=== PATIENT | female | born 1990 | race Caucasian/White ===

== ENCOUNTER 2016-11-15 10:54 | Emergency (ER) | payer SELFPAY ==
[~2016-11-15] VITALS: Ht 172.7 cm; Wt 123.3 kg
[2016-11-15 11:03] VITALS: BP 117/76; PULSE 104; RESP 16; TEMP 99.3; O2SAT 94
--- NOTE | 2016-11-15 11:25 | PD ---
HPI Chief Complaint: Skin Problem Time Seen by Provider: 11:23 Travel History International Travel<30 days: No Contact w/Intl Traveler<30days: No Traveled to known affect area: No History of Present Illness HPI Patient comes in complaining of abscess on her left upper buttocks that began approximately 3 days ago is very painful. Pain is worse with sitting. Patient denies anything making it better. Patient reports she had similar approximately 4 years ago that was I&D, but patient has not followed up. Denies any fevers with this, loss change in bowel or bladder, or .. Patient reports on medication that she is on Suboxone. PFSH Past Medical History Hx Anticoagulant Therapy: No Cardiovascular Problems: No Chemotherapy: No Cerebrovascular Accident: No Diabetes: No Diminished Hearing: No Respiratory: No ?: Unknown LMP: 4.5 weeks ago : 0 Past Surgical History Hysterectomy: No Social History Alcohol Use: Yes (rare) Tobacco Use: Yes Substance Use: Yes (dilaudid,roxys,xanax) Allergies-Medications (Allergen,Severity, Reaction): Coded Allergies: No Known Allergies (Unverified , 11/15/16) Reported Meds & Prescriptions Reported Meds & Active Scripts Active Naprosyn (Naproxen) 500 Mg Tab 500 Mg PO Q12HR PRN Bactrim DS (Sulfamethoxazole-Trimethoprim) 800-160 Mg Tab 1 Tab PO BID Reported [suboxone] Review of Systems Except as stated in HPI: all other systems reviewed are Neg Physical Exam Narrative GENERAL: Well-developed, overly nourished, in no acute distress, and non-ill appearing. SKIN: Warm and dry. Pilonidal cyst noted the cleft buttocks on the left than right with tenderness to palpation. There is no drainage. The exam was performed in the presence of staff reporterJESSIE Bolton at all times. HEAD: Atraumatic. Normocephalic. EYES: Pupils equal and round. EOMI. No scleral icterus. No injection or drainage. ENT: No nasal bleeding or discharge. Mucous membranes pink and moist. NECK: Trachea midline. Supple. No nuclear rigidity. RESPIRATORY: No accessory muscle use. No respiratory distress. MUSCULOSKELETAL: No obvious deformities. No clubbing. No cyanosis. No edema. Full range of motion. NEUROLOGICAL: Awake and alert. No obvious cranial nerve deficits. Motor grossly within normal limits. Normal speech. PSYCHIATRIC: Appropriate mood and affect; insight and judgment normal. Data Data Last Documented VS Vital Signs Date Time Temp Pulse Resp B/P Pulse Ox O2 Delivery O2 Flow Rate FiO2 11/15/16 11:03 99.3 104 16 117/76 94 Orders Lidocai-Epi 1%-1:100,000 Inj (Xylocaine- (11/15/16 11:30) Wound Culture And Gram Stain (11/15/16 12:11) MDM Medical Decision Making Medical Screen Exam Complete: Yes Emergency Medical Condition: Yes Differential Diagnosis Abscess, cellulitis, pilonidal, other Narrative Course The patient has no evidence of significant cellulitis. There is no evidence of necrotizing fasciitis/ Forneys at this time. The patient will be discharged on antibiotics. The patient was given signs and symptoms warnings for worsening infection, such as spreading of redness, increasing pain, and/or swelling, associated heat, or fever or feels worse, and instructed to return immediately if these signs or symptoms worsen. The patient is to return in 2 days for recheck. Sooner if worsens or as needed. The patient agrees with plan. Patient in no obvious distress upon re-evaluation. Patient was asked if they wanted to speak to my attending, which the patient did not wish to do at this time. Any questions/concerns in reference to patient diagnosis/condition discussed and clarified prior to patient's discharge. Reinforced sheer importance of close follow up with patient's primary physician or primary care clinic. Instructed patient to return to ED immediately, if symptoms return/ worsen. Pt showed understanding of above instructions. Further instructions and recommendations were detailed in discharge paperwork. Pt ambulated without difficulty out of ED at discharge. Procedures Procedure Narrative INCISION AND DRAINAGE OF ABSCESS: Verbal consent was obtained. The area was prepped. A subcutaneous wheal of 1% Xylocaine with epi with a total number 3 mL was used to anesthetize the area. The area was properly anesthetized. A number 11 scalpel was used to make a 1-cm incision across the area of the abscess. The abscess was drained and irrigated with normal saline. Quarter inch iodoform packing was placed in the wound. Sterile dressing applied by nurse. Patient tolerated procedure well. Patient advised to return here in 2 days to have packing removed and wound rechecked. Patient verbalized understanding. Procedure was performed in presence of staff reporterJESSIE Bolton at all times. Diagnosis Primary Impression: Pilonidal cyst with abscess Referrals: Edgar Gamino MD Patient Instructions: General Instructions, Pilonidal Cyst (ED), Sitz Bath (GEN ) Additional Instructions: Follow-up with general surgery for definitive treatment. Return here in 2 days for recheck. Apply warm compresses or do sitz baths 2-3 times daily to facilitate drainage. Take all medication as prescribed. Use a hemorrhoid pillow for comfort when sitting. Return to the emergency department if symptoms get worse. Med/Other Pt SpecificInfo: Prescription(s) given Scripts Naproxen (Naprosyn)500 Mg Sac639 Mg PO Q12HR PRN (PAIN SCALE 1 TO 10) #14 TAB Ref 0 Prov:Kelsi Syed MD 11/15/16 Sulfamethoxazole-Trimethoprim (Bactrim DS)800-160 Mg Tab1 Tab PO BID #20 TAB Ref 0 Prov:Kelsi Syed MD 11/15/16 Disposition: 01 DISCHARGE HOME Condition: Stable Chris Warren Nov 15, 2016 11:25
[2016-11-15] MEDS ORDERED: suboxone (11:27)
[2016-11-15] MEDS ORDERED: LIDOCAINE 1%/EPINEPHrine 1:100,000 SOLN 20 ML VIAL INFIL ONE (11:30)
[2016-11-15] MEDS ORDERED: NAPR500 PO (12:15)
[2016-11-15] MEDS ORDERED: BACT800T5 PO (12:15)
== END 2016-11-15 12:59 | disposition home or self-care (01) ==
LOC: PHEFT 10:54
DX: L05.01 Pilonidal cyst with abscess (principal); B95.4 Other streptococcus as the cause of diseases classified elsewhere
CPT/HCPCS: 10080; 87070

== ENCOUNTER 2016-11-26 11:12 | Emergency (ER) | payer SELFPAY ==
[~2016-11-26] VITALS: Ht 172.7 cm; Wt 116.0 kg
[~2016-11-26 11:12] MED LIST: BACT800T5 PO; NAPR500 PO; suboxone
[2016-11-26 11:35] VITALS: BP 109/73; PULSE 99; RESP 15; TEMP 97.9; O2SAT 95
--- NOTE | 2016-11-26 12:05 | PD ---
HPI Chief Complaint: Wound/Suture/Staple Re-Check Time Seen by Provider: 12:01 Travel History International Travel<30 days: No Contact w/Intl Traveler<30days: No Traveled to known affect area: No History of Present Illness HPI 26-year-old female coming in status post pilonidal cyst I&D on 2016. Patient is here for recheck and packing removal. Patient has no complaints. She has no known drug allergies. PFSH Past Medical History Medical History: Denies Significant Hx Hx Anticoagulant Therapy: No Cardiovascular Problems: No Chemotherapy: No Cerebrovascular Accident: No Diabetes: No Diminished Hearing: No Respiratory: No Immunizations Current: Yes Tetanus Vaccination: < 5 Years Influenza Vaccination: No ?: Not LMP: 2 WEEKS AGO : 0 Past Surgical History Surgical History: No Previous Surgery Hysterectomy: No Social History Alcohol Use: Yes (rare) Tobacco Use: Yes (1 pk) Substance Use: Yes (dilaudid,roxys,xanax, previous iv drug use) Allergies-Medications (Allergen,Severity, Reaction): Coded Allergies: No Known Allergies (Unverified , 11/26/16) Reported Meds & Prescriptions Reported Meds & Active Scripts Active Naprosyn (Naproxen) 500 Mg Tab 500 Mg PO Q12HR PRN Reported [suboxone] Review of Systems ROS Limitations: Uncooperative Except as stated in HPI: all other systems reviewed are Neg General / Constitutional: No: Fever Eyes: No: Visual changes HENT: No: Headaches Cardiovascular: No: Chest Pain or Discomfort Respiratory: No: Shortness of Breath Gastrointestinal: No: Abdominal Pain Genitourinary: No: Dysuria Musculoskeletal: No: Pain Skin: No Rash Neurologic: No: Weakness Psychiatric: No: Depression Endocrine: No: Polydipsia Hematologic/Lymphatic: No: Easy Bruising Physical Exam Exam Limitations: Uncooperative Narrative GENERAL: Patient is no acute distress. SKIN: Warm and dry. Normal color. Normal turgor. Well healed cyst on the upper left buttock without tenderness, erythema, or swelling. Patient was examined with nursing staff car distributor. HEAD: Atraumatic. Normocephalic. CARDIOVASCULAR: Regular rate and rhythm. RESPIRATORY: No accessory muscle use. MUSCULOSKELETAL: Extremities without clubbing, cyanosis, or edema. No obvious deformities. NEUROLOGICAL: Awake and alert. No obvious cranial nerve deficits. Motor grossly within normal limits. Five out of 5 muscle strength in the arms and legs. Normal speech. PSYCHIATRIC: Appropriate mood and affect; insight and judgment normal. Data Data Last Documented VS Vital Signs Date Time Temp Pulse Resp B/P Pulse Ox O2 Delivery O2 Flow Rate FiO2 11/26/16 11:35 97.9 99 15 109/73 95 MDM Medical Decision Making Medical Screen Exam Complete: Yes Emergency Medical Condition: Yes Differential Diagnosis Pilonidal cyst. Wound check. Packing removal. Narrative Course Patient is medically stable at time of exam. No further medical treatment is felt warranted. Diagnosis Primary Impression: Pilonidal cyst with abscess Additional Impression: Wound check, abscess Patient Instructions: General Instructions Additional Instructions: Patient is medically stable at time of exam. No further medical treatment is felt warranted. Disposition: 01 DISCHARGE HOME Condition: Stable Leno Guillory Nov 26, 2016 12:05
== END 2016-11-26 12:28 | disposition home or self-care (01) ==
LOC: PHEFT 11:12
DX: Z48.01 Encounter for change or removal of surgical wound dressing (principal)
CPT/HCPCS: 99281

== ENCOUNTER 2017-04-16 09:05 | Emergency (ER) | payer SELFPAY ==
[~2017-04-16] VITALS: Ht 175.3 cm; Wt 117.6 kg
[~2017-04-16 09:05] MED LIST changes: -BACT800T5 PO
[2017-04-16 09:11] VITALS: BP 135/70; PULSE 98; RESP 16; TEMP 99.8; O2SAT 95
--- NOTE | 2017-04-16 09:26 | PD ---
HPI Chief Complaint: Skin Problem Time Seen by Provider: 09:22 Travel History International Travel<30 days: No Contact w/Intl Traveler<30days: No Traveled to known affect area: No History of Present Illness HPI 26-year-old female patient presents to the ER today, states that she uses IV drugs and had an injection of drugs on her right wrist 4 days ago, now it is getting more swollen and painful. She denies any other issues. Modifying Factors: None Associated Signs & Symptoms: Wrist injection site swelling and redness Risk Factors: IV drug use PFSH Past Medical History Hx Anticoagulant Therapy: No Cardiovascular Problems: No Chemotherapy: No Cerebrovascular Accident: No Diabetes: No Diminished Hearing: No Respiratory: No Immunizations Current: Yes Tetanus Vaccination: < 5 Years ?: Not LMP: 2 WEEKS : 0 Past Surgical History Hysterectomy: No Social History Alcohol Use: Yes (rare) Tobacco Use: Yes (1 pk) Substance Use: Yes (dilaudid,roxys,xanax, previous iv drug use) Allergies-Medications (Allergen,Severity, Reaction): Coded Allergies: No Known Allergies (Unverified , 04/16/17) Reported Meds & Prescriptions Reported Meds & Active Scripts Active Reported [suboxone] Review of Systems Except as stated in HPI: all other systems reviewed are Neg Physical Exam Narrative GENERAL: Well-nourished, well-developed young white female patient in mild distress. Awake and oriented 3. SKIN: Focused skin assessment warm/dry. HEAD: Normocephalic. EYES: No scleral icterus. No injection or drainage. NECK: Supple, trachea midline. CARDIOVASCULAR: Regular rate and rhythm without murmurs, gallops, or rubs. RESPIRATORY: Breath sounds equal bilaterally. No accessory muscle use. GASTROINTESTINAL: Abdomen soft, non-tender, nondistended. MUSCULOSKELETAL: No cyanosis, or edema. Right wrist: There is a 2 cm area of erythema, induration and fluctuance on the dorsum of the right wrist. Tender to palpation. Data Data Last Documented VS Vital Signs Date Time Temp Pulse Resp B/P Pulse Ox O2 Delivery O2 Flow Rate FiO2 04/16/17 09:11 99.8 98 16 135/70 95 Orders Lidocaine 1% Inj (50 Ml) (Xylocaine 1% I (04/16/17 09:30) [facility] Medical Decision Making Medical Screen Exam Complete: Yes Emergency Medical Condition: Yes Medical Record Reviewed: Yes Differential Diagnosis Cellulitis versus abscess Narrative Course I&D was done by me in the ER. My plan would be to release the patient would follow-up in 2 days for wound check and packing removal. Wound care instructions given. The plan was discussed with her and she states understanding. Procedures Procedure Narrative INCISION AND DRAINAGE OF ABSCESS: The area was prepped and was sterilely draped. A subcutaneous wheal of % Xylocaine 1% with a total number to mL was used to anesthetize the area. The area was properly anesthetized. A number small scalpel was used to make a 1] -cm incision across the area of the abscess. The abscess was drained an irrigated with normal saline. Quarter inch iodoform packing was placed in the wound. Sterile dressing applied. Patient advised to have packing removed in two days. Diagnosis Primary Impression: Abscess, wrist Med/Other Pt SpecificInfo: Prescription(s) given Scripts Ibuprofen (Motrin Ib)200 Mg [id number] Mg PO QID PRN (PAIN SCALE 1 TO 10) #20 Prov:Taqueria Garibay MD 04/16/17 Disposition: 01 DISCHARGE HOME Condition: Stable Taqueria Garibay MD Apr 16, 2017 09:26
[2017-04-16] MEDS ORDERED: LIDOCAINE HCL 1% 50 ML VIAL INFIL ONE (09:30)
[2017-04-16] MEDS ORDERED: IBUP-1129 PO (09:55)
== END 2017-04-16 10:04 | disposition home or self-care (01) ==
LOC: PHED 09:05
DX: L02.413 Cutaneous abscess of right upper limb (principal)
CPT/HCPCS: 10061

== ENCOUNTER 2017-07-22 17:40 | Emergency (ER) | payer SELFPAY ==
[~2017-07-22] VITALS: Ht 175.3 cm; Wt 115.6 kg
[~2017-07-22 17:40] MED LIST changes: +IBUP-1129 PO; -NAPR500 PO
[2017-07-22 17:46] VITALS: BP 132/87; PULSE 98; RESP 18; TEMP 99.1; O2SAT 94
[2017-07-22] MEDS ORDERED: METH10TA PO (18:18)
[2017-07-22] MEDS ORDERED: CEPH-460 PO (18:38)
[2017-07-22] MEDS ORDERED: BACT800T5 PO (18:38)
--- NOTE | 2017-07-22 18:40 | PD ---
HPI . Cellulitis Chief Complaint: Skin Problem Time Seen by Provider: 18:16 Travel History International Travel<30 days: No Contact w/Intl Traveler<30days: No Traveled to known affect area: No History of Present Illness HPI 26-year-old female presents emergency department for evaluation of redness, warmth and pain in her left hand 2 days. Patient is an IV drug user and used her left hand a couple days ago to inject Dilaudid. The hand is neurovascularly intact and has 2 second cap refill. The hand has full range of motion in all all digits. Radial pulse palpable. Patient denies any fevers, chills, malaise, chest pain, lightheadedness, abdominal pain, nausea, vomiting, incontinence of urine or stool. There is no sign of abscess noted in the cellulitic hand. The erythema and induration are noted to the dorsal aspect of the hand. Patient has no major medical history outside of IV drug use. PFSH Past Medical History Medical History: Denies Significant Hx Hx Anticoagulant Therapy: No Cardiovascular Problems: No Chemotherapy: No Cerebrovascular Accident: No Diabetes: No Diminished Hearing: No Respiratory: No Immunizations Current: Yes Tetanus Vaccination: < 5 Years Influenza Vaccination: Yes ?: Not LMP: 07/19/17 : 0 Past Surgical History Surgical History: No Previous Surgery Hysterectomy: No Social History Alcohol Use: Yes (rare) Tobacco Use: Yes (1 pk) Substance Use: Yes (dilaudid,roxys,xanax, iv drug use) Allergies-Medications (Allergen,Severity, Reaction): Coded Allergies: No Known Allergies (Unverified , 07/22/17) Reported Meds & Prescriptions Reported Meds & Active Scripts Active Reported Methadone (Methadone HCl) 10 Mg Tab 30 Mg PO DAILY Review of Systems Except as stated in HPI: all other systems reviewed are Neg Physical Exam Narrative GENERAL: Well-nourished, well-developed 26-year-old female patient in no acute distress. Nontoxic appearing. SKIN: Erythema, induration and mild edema noted to the dorsal aspect of the left hand. HEAD: Normocephalic. Atraumatic. EYES: No scleral icterus. No injection or drainage. NECK: Supple, trachea midline. No JVD or lymphadenopathy. CARDIOVASCULAR: Regular rate and rhythm without murmurs, gallops, or rubs. Radial pulse +2 bilaterally. RESPIRATORY: Breath sounds equal bilaterally. No accessory muscle use. GASTROINTESTINAL: Abdomen soft, non-tender, nondistended. MUSCULOSKELETAL: Full range of motion noted in the left hand. BACK: Nontender without obvious deformity. No CVA tenderness. Data Data Last Documented VS Vital Signs Date Time Temp Pulse Resp B/P (MAP) Pulse Ox O2 Delivery O2 Flow Rate FiO2 07/22/17 17:46 99.1 98 18 132/87 (102) 94 MDM Medical Decision Making Medical Screen Exam Complete: Yes Emergency Medical Condition: Yes Differential Diagnosis Differential diagnosis as include but not limited to cellulitis, abscess, IV drug abuse, sepsis Narrative Course Well-nourished well-developed nontoxic-appearing 26-year-old female presents to the emergency department for evaluation of 2 day history of erythema to the dorsal aspect of the left hand. Patient is an IV drug user and states she is the left hand and couple days ago to inject Dilaudid. Patient states she has been elevating the left hand and soaking it in Epsom salt but erythema and pain are persistent. Patient has full range of motion in the left hand with no signs or symptoms of abscess noted. Patient is afebrile in triage and denies any fevers at home. Patient denies any shortness of breath, chest pain, incontinence of urine or stool. Patient will be given a prescription for Bactrim and Keflex and discharged home with instructions to elevate, ice, take medication as prescribed, discontinue IV drug abuse and return to the emergency Department with any signs of worsening infection otherwise follow-up with primary care. Patient understands this plan of care and is in agreement with it. She verbalizes the understanding of signs to look for for worsening infection and reasons to return to the emergency department. Patient states her mother is a nurse and will help her manage and assess the cellulitis. Diagnosis Primary Impression: Cellulitis Qualified Codes: L03.114 - Cellulitis of left upper limb Referrals: Primary Care Physician Patient Instructions: Cellulitis (DC), General Instructions, Narcotic Abuse (DC ) Additional Instructions: Please return to emergency department if your symptoms return or worsen. Return with any signs of worsening infection such as increasing redness, increasing pain, fevers. Follow up with your primary care provider. Take medications as prescribed. Rest, ice, elevate left hand Med/Other Pt SpecificInfo: Prescription(s) given Scripts Cephalexin (Keflex) 500 Mg Cap 500 MG PO Q6H for Infection for 10 Days, #40 CAP 0 Refills Prov: Gemma Gaming 07/22/17 Sulfamethoxazole-Trimethoprim (Bactrim DS) 800-160 Mg Tab 1 TAB PO BID for Infection for 10 Days, #20 TAB 0 Refills Prov: Gemma Gaming 07/22/17 Disposition: 01 DISCHARGE HOME Condition: Stable Gemma Gaming Jul 22, 2017 18:40
== END 2017-07-22 18:54 | disposition home or self-care (01) ==
LOC: PHEFT 17:40
DX: L03.114 Cellulitis of left upper limb (principal); Z72.0 Tobacco use
CPT/HCPCS: 99284

== ENCOUNTER 2018-01-19 16:06 | Emergency (ER) | payer SELFPAY ==
[~2018-01-19] VITALS: Ht 175.3 cm; Wt 111.0 kg
[~2018-01-19 16:06] MED LIST changes: +BACT800T5 PO; +CEPH-460 PO; -IBUP-1129 PO; +METH10TA PO; -suboxone
[2018-01-19 16:26] VITALS: BP 125/66; PULSE 89; RESP 16; TEMP 97.8; O2SAT 95
[2018-01-19] MEDS ORDERED: ORPHENADRINE INJ 60 MG/2 ML AMP IM ONE (16:45)
[2018-01-19] MEDS ORDERED: KETOROLAC TROMETHAMINE 60 MG/2 ML (IM) VIAL IM ONE (16:45)
--- NOTE | 2018-01-19 16:57 | PD ---
HPI Chief Complaint: Musculoskeletal Complaint Time Seen by Provider: 16:32 Travel History International Travel<30 days: No Contact w/Intl Traveler<30days: No Traveled to known affect area: No History of Present Illness HPI 27-year-old female presents to the emergency department for evaluation of low back pain and left calf pain that started yesterday. Patient states that she was moving a cabinet and a Hutch fell on her yesterday. Says that she was able to prop to hutch with her left calf to reduce further injury but now has pain in her left calf. Patient states that she has had pain since then. Patient says the pain in her left calf is severe, aching, and worse with movement. Patient states that she was unable to sleep because of the pain. Says that she has tried to rub the calf but has not improved. Says her low back pain is aching , worse with movement, and severe. Patient denies any anti-inflammatory medication use- she has not used any medication actually for her pain. Says that she has been prescribed Suboxone for her chronic opiate addiction however, she is not taking this as she does not believe she has an opiate problem at this time. Patient is requesting medication to help relieve her pain. Says that she will get medication on the street if she does not get medication for pain. Denies loss of bowel or bladder function, saddle anesthesia, numbness or tingling of the extremities, fever, chills. She has not used IV drugs in over 6 months. PFSH Past Medical History Hx Anticoagulant Therapy: No Cardiovascular Problems: No Chemotherapy: No Cerebrovascular Accident: No Diabetes: No Diminished Hearing: No Respiratory: No Immunizations Current: Yes ?: Not LMP: 01/19/18 : 0 Past Surgical History Hysterectomy: No Social History Alcohol Use: Yes (rare) Tobacco Use: Yes (1 pk) Substance Use: Yes (dilaudid,roxys,xanax, iv drug use) Allergies-Medications (Allergen,Severity, Reaction): Coded Allergies: No Known Allergies (Verified Adverse Reaction, Unknown, 01/19/18) Reported Meds & Prescriptions Reported Meds & Active Scripts Active Lidocaine Patch 12 HR (Lidocaine) 5 % Patch 1 Patch TOPICAL DAILY 5 Days Remove patch after 12 hours Robaxin (Methocarbamol) 500 Mg Tab 500 Mg PO TID 3 Days Ibuprofen 800 Mg Tab 800 Mg PO Q8H PRN 5 Days Reported Suboxone Sublingual Film (Buprenorphine-Naloxone Sublingual Film) 8-2 Mg Film 1 Film SL BID Unique ID number required: Review of Systems Except as stated in HPI: all other systems reviewed are Neg Physical Exam Narrative GENERAL: WD, WN in mild distress SKIN: Focused skin assessment warm/dry. HEAD: Atraumatic. Normocephalic. EYES: Pupils equal and round. No scleral icterus. No injection or drainage. ENT: No nasal bleeding or discharge. Mucous membranes pink and moist. NECK: Trachea midline. No JVD. CARDIOVASCULAR: Regular rate and rhythm. No murmur appreciated. RESPIRATORY: No accessory muscle use. Clear to auscultation. Breath sounds equal bilaterally. GASTROINTESTINAL: Abdomen soft, non-tender, nondistended. Hepatic and splenic margins not palpable. MUSCULOSKELETAL: No obvious deformities. No clubbing. No cyanosis. No edema. Left calf- TTP to mid-calf, small mass, consistent with a hematoma vs contusion BACK: No CVA tenderness. No rash. No point tenderness on palpation of the spine. Tenderness to palpation bilateral upper lumbar paraspinous region. NEUROLOGICAL: Awake and alert. No obvious cranial nerve deficits. Motor grossly within normal limits. Normal speech. PSYCHIATRIC: Appropriate mood and affect; insight and judgment normal. Data Data Last Documented VS Vital Signs Date Time Temp Pulse Resp B/P (MAP) Pulse Ox O2 Delivery O2 Flow Rate FiO2 01/19/18 18:10 16 01/19/18 16:26 97.8 89 125/66 (85) 95 Orders Orders Ketorolac Inj (Toradol Inj) (01/19/18 16:45) Orphenadrine Inj (Norflex Inj) (01/19/18 16:45) Spine, Lumbar Comp W/Obliq (01/19/18 ) Tibia/Fibula (Ap/Lat) (01/19/18 ) Ed Discharge Order (01/19/18 17:58) MDM Medical Decision Making Medical Screen Exam Complete: Yes Emergency Medical Condition: Yes Differential Diagnosis left calf Contusion, leg fracture, lumbar contusion, lumbar fracture, lumbar muscle spasms, thoracic contusion Narrative Course 27-year-old female presents to the emergency department for evaluation of low back pain and left calf pain that started yesterday. Patient states that she was moving a cabinet and a Hutch fell on her yesterday. Says that she was able to prop to hutch with her left calf to reduce further injury but now has pain in her left calf. Patient states that she has had pain since then. Patient says the pain in her left calf is severe, aching, and worse with movement. Patient states that she was unable to sleep because of the pain. Says that she has tried to rub the calf but has not improved. Says her low back pain is aching , worse with movement, and severe. Patient denies any anti-inflammatory medication use- she has not used any medication actually for her pain. Says that she has been prescribed Suboxone for her chronic opiate addiction however, she is not taking this as she does not believe she has an opiate problem at this time. Patient is requesting medication to help relieve her pain. Says that she will get medication on the street if she does not get medication for pain. Denies loss of bowel or bladder function, saddle anesthesia, numbness or tingling of the extremities, fever, chills. She has not used IV drugs in over 6 months. Vital signs stable. Physical exam findings demonstrate tenderness palpation in the lower lumbar and thoracic paraspinous muscles. Tenderness palpation in the left lower calf. No edema or ecchymosis. Full range of motion of ankle without pain. Homans sign negative. Neurovascularly intact lower extremities. No tenderness palpation of the cervical spine. Xrays ordered to r/o fracture. Last Impressions Tibia/Fibula X-Ray 01/19/18 0000 Signed Impressions: Service Date/Time: Friday, January 19, 2018 16:56 - CONCLUSION: Negative trauma study. Edgar Triana MD Lumbar Spine X-Ray 01/19/18 0000 Signed Impressions: Service Date/Time: Friday, January 19, 2018 16:56 - CONCLUSION: Negative exam. Edgar Triana MD Toradol and Norflex administered the emergency department today. Patient will be discharged with Robaxin and ibuprofen. Advised to follow-up with a primary care physician. Consider orthopedics for further evaluation. Return for worsening or persistent symptoms. Diagnosis Primary Impression: Lumbar contusion Qualified Codes: S30.0XXA - Contusion of lower back and pelvis, initial encounter Additional Impressions: Contusion of left calf Qualified Codes: S80.12XA - Contusion of left lower leg, initial encounter Muscle contusion Referrals: Primary Care Physician Departure Forms: Tests/Procedures, Work Release Enter return to work date: Jan 21, 2018 Additional Instructions: Use ice or heat for symptom relief. If no contraindications, you may use Tylenol or Motrin per package instructions for your pain. Elevate the joint above the heart to reduce swelling. You may use compression with Chente wrap or similar to reduce swelling. Perform light stretches of the lower back and legs, and alternate heat and ice packs. If you develop increased pain, weakness, fever, chills, or bowel or bladder issues, return to the ED for further treatment and evaluation. Follow up with your primary care physician in 2-3 days. Scripts Lidocaine Patch 12 HR (Lidocaine Patch 12 HR) 5 % Patch 1 PATCH TOPICAL DAILY for Pain Management for 5 Days, #1 BOX 0 Refills Remove patch after 12 hours Prov: Arlene Soriano DO 01/19/18 Methocarbamol (Robaxin) 500 Mg Tab 500 MG PO TID for Muscle Spasm for 3 Days, TAB 0 Refills Prov: Arlene Soriano DO 01/19/18 Ibuprofen (Ibuprofen) 800 Mg Tab 800 MG PO Q8H Y for Pain/Inflammation for 5 Days, #15 TAB 0 Refills Prov: Arlene Soriano DO 01/19/18 Disposition: 01 DISCHARGE HOME Condition: Stable Sandi Elizondo Jan 19, 2018 16:57
[2018-01-19] MEDS ORDERED: SUBO8MIS SL (17:11)
--- NOTE | 2018-01-19 17:51 | RADRPT ---
EXAM DATE/TIME: 01/19/2018 16:56 [facility] COMPARISON: No previous studies available for comparison. INDICATIONS : Patient states left mid shaft posterior lower leg pain after a hutch fell on her leg yesterday. MEDICAL HISTORY : None. SURGICAL HISTORY : None. ENCOUNTER: Initial ACUITY: 1 day PAIN SCORE: 8/10 LOCATION: Left lower leg FINDINGS: Two view examination of the left tibia demonstrates no evidence of fracture or dislocation. Bony min eralization is normal. The soft tissue structures are intact. CONCLUSION: Negative trauma study. Edgar Triana MD on January 19, 2018 at 17:48 Board Certified Radiologist. This report was verified electronically.
--- NOTE | 2018-01-19 17:51 | RADRPT ---
EXAM DATE/TIME: 01/19/2018 16:56 [facility] COMPARISON: No previous studies available for comparison. INDICATIONS : Patient states lower back pain after a hutch fell on her yesterday. MEDICAL HISTORY : None. SURGICAL HISTORY : None. ENCOUNTER: Initial ACUITY: 2 days PAIN SCORE: 8/10 LOCATION: lumbar spine. FINDINGS: There are five non-rib bearing vertebral bodies. The vertebral bodies are in normal alignment withou t evidence of subluxation or scoliosis. The disc spaces are maintained. The posterior elements are intact without evidence of spondylolysis. The pedicles are intact. Bony mineralization is normal. No fracture is identified. CONCLUSION: Negative exam. Edgar Triana MD on January 19, 2018 at 17:48 Board Certified Radiologist. This report was verified electronically.
[2018-01-19] MEDS ORDERED: LIDO1PAD52 TOPICAL (17:55)
[2018-01-19] MEDS ORDERED: IBUP1TAB7 PO (17:55)
[2018-01-19] MEDS ORDERED: ROBA500T PO (17:55)
== END 2018-01-19 18:23 | disposition home or self-care (01) ==
LOC: PHEFT 16:06
DX: S30.0XXA Contusion of lower back and pelvis, initial encounter (principal); S80.12XA Contusion of left lower leg, initial encounter; F17.200 Nicotine dependence, unspecified, uncomplicated; W22.03XA Walked into furniture, initial encounter; Z79.899 Other long term (current) drug therapy
CPT/HCPCS: 72110; 73590; 96372; 99283; J1885; J2360